=== PATIENT | female | born 1940 | race Hispanic/Latino ===

== ENCOUNTER 2018-05-07 15:50 | Inpatient (IN) | payer MEDICARE ==
[~2018-05-07] VITALS: Ht 162.6 cm; Wt 84.8 kg
[~2018-05-07 15:50] MED LIST: ASPIRIN EC81 MG PO; CENTRUM SILVER1 EAC3 PO; COLACE100 M1 PO; FAMOTIDINE20 MG PO; FERROUS SULFAT325 MG PO; GLIPIZIDE ER5 MG PO; LEVAQUIN250 MG PO; LEVAQUIN500 MG PO; LOSARTAN POTASS25 MG PO; MACRODANTIN100 MG PO; METRONIDAZOLE500 MG PO; OXYBUTYNIN CHLOR5 MG PO; RENVELA800 MG PO; SENOKOT8.6 MG PO; SERTRALINE HCL50 MG PO; VESICARE5 MG PO
[2018-05-07 16:59] LABS: BASOPHILS % 0.4 % (0.0-1.0); EOSINOPHILS # (AUTO) 0.1 (0.0-0.4); EOSINOPHILS % 1.2 % (0.0-6.0); HEMATOCRIT 35.9 % (34.2-44.1); HEMOGLOBIN 11.9 g/dL (12.0-16.0); LYMPHOCYTES # (AUTO) 1.9 (1.0-3.2); LYMPHOCYTES % 22.5 % (18.0-39.1); MEAN CORPUSCULAR HEMOGLOBIN 29.2 pg (28-32); MEAN CORPUSCULAR HGB CONC 33.1 g/dL (31-35); MEAN CORPUSCULAR VOLUME 88.2 fL (81-99); MONOCYTES # (AUTO) 0.7 (0.2-0.8); MONOCYTES % 7.9 % (4.4-11.3); NEUTROPHILS # (AUTO) 5.7 (2.1-6.9); NEUTROPHILS % 67.6 % (38.7-80.0); PLATELET COUNT 155 x10e3/uL (140-360); RED BLOOD COUNT 4.07 x10e6/uL (3.6-5.1)
[2018-05-07 17:23] LABS: ALANINE AMINOTRANSFERASE 9 IU/L (0-55); ALBUMIN 3.8 g/dL (3.5-5.0); ALBUMIN/GLOBULIN RATIO 1.2 (0.8-2.0); ALKALINE PHOSPHATASE 41 IU/L (40-150); ANION GAP 13.9 mmol/L (8-16); BLOOD UREA NITROGEN 26 mg/dL (7-26); BUN/CREATININE RATIO 24 (6-25); CALCIUM 9.4 mg/dL (8.4-10.2); CARBON DIOXIDE 24 mmol/L (22-29); CHLORIDE 104 mmol/L (98-107); CREATINE KINASE 83 IU/L (29-168); CREATININE, SERUM 1.09 mg/dL (0.57-1.11); EST GLOMERULAR FILTRATION RATE 49 ML/MIN (60-); GLUCOSE 105 mg/dL (74-118); POTASSIUM 3.9 mmol/L (3.5-5.1); SODIUM 138 mmol/L (136-145)
--- NOTE | 2018-05-07 17:33 | Diagnostic Imaging Report ---
EXAMINATION: Head CT HISTORY: Altered mental status, hallucinations COMPARISON: None. TECHNIQUE: Multidetector axial images were obtained without contrast from the foramen magnum to the vertex . The images were reconstructed using brain and bone algorithms. Thin section brain images were reformatted into coronal and sagittal planes. Intravenous contrast: None. Motion/streaking artifact limits the evaluation of the skull base and posterior cranial fossa. FINDINGS: Parenchyma: 1. No abnormal densities. No mass effect or midline shift. 2. No mass or hemorrhage. No CT evidence of acute territorial vascular insult. Extra-axial spaces:No abnormal density. No extra-axial fluid collections Brain volume: Normal for age. Ventricles: No hydrocephalus or displacement. Arteries: No density suggestive of thrombus. Dural sinuses: No abnormal density. Extra-axial spaces: No abnormal density. Foramen magnum: No mass, Chiari malformation, or basilar invagination. Sella: Partially empty, mostly CSF field. Paranasal/mastoid sinuses: Mucosal inflammatory thickening and partial opacification with a small air-fluid level within the left sphenoid sinus with periostitis, likely related to acute on chronic sinusitis, otherwise clear. Skull/Scalp: No lytic or blastic lesions. No fractures. IMPRESSION: 1. No intracranial mass, hydrocephalus, hemorrhage or acute cortical infarcts. 2. Left sphenoid sinusitis. Signed by: Dr. Kirti Betancourt M.D. on 05/07/2018 5:30 PM
--- NOTE | 2018-05-07 17:34 | Diagnostic Imaging Report ---
PROCEDURE: Frontal and lateral views of the chest. COMPARISON: 01/01/18 INDICATIONS: SOB FINDINGS: Lines/tubes: None. Lungs: The lungs are well inflated and clear. There is no evidence of pneumonia or pulmonary edema. Pleura: There is no pleural effusion or pneumothorax. Heart and mediastinum: The heart and the mediastinum are normal. Bones: No acute bony abnormality. IMPRESSION: 1. No acute cardiopulmonary disease. Dictated by: eJd White M.D. on 05/07/2018 at 17:38 Electronically approved by: Jed White M.D. on 05/07/2018 at 17:38
[2018-05-07 17:43] LABS: CLARITY,URINE CLOUDY (CLEAR); COLOR,URINE YELLOW (YELLOW); THYROID STIMULATING HORMONE 2.045 uIU/mL (0.350-4.940)
[2018-05-07 17:44] LABS: BILIRUBIN,URINE NEGATIVE (NEGATIVE); KETONES,URINE NEGATIVE (NEGATIVE); LEUKOCYTE ESTERASE ,URINE 2+ (NEGATIVE); NITRITE,URINE POSITIVE (NEGATIVE); PROTEIN,URINE DIPSTICK NEGATIVE (NEGATIVE); URINE UROBILINOGEN 0.2 mg/dL (0.2 - 1)
[2018-05-07 18:03] LABS: EPITHELIAL CELLS,URINE MANY /LPF
[2018-05-07 18:05] LABS: BACTERIA,URINE MODERATE /HPF; WBC,URINE (MAN) >50 /HPF (0-5)
[2018-05-07] MEDS ORDERED: ATORVASTATIN CA10 MG PO (19:08)
[2018-05-07] MEDS ORDERED: CEFTRIAXONE SOD 1 GM VIAL IM ONE (19:15)
[2018-05-07] MEDS ORDERED: CEFTRIAXONE SOD 1 GM VIAL IV SCH (19:15)
[2018-05-07 20:00] VITALS: BP 159/66
[2018-05-07] MEDS ORDERED: DEXTROSE 50% SYRINGE 50 ML IV PRN (20:00)
[2018-05-07] MEDS ORDERED: ONDANSETRON HCL INJ 2 MG/ML VIAL IV PRN (20:00)
[2018-05-07] MEDS ORDERED: ACETAMINOPHEN 325 MG TAB PO PRN (20:00)
[2018-05-07 21:00] VITALS: BP 159/66
[2018-05-07] MEDS: ATORVASTATIN 10 MG TAB PO SCH (21:00)
[2018-05-07] MEDS: INSULIN REGULAR, HUMAN 100 UNIT/1 ML 3ML VIAL SQ SCH (21:00)
[2018-05-07] MEDS: SODIUM CHLORIDE 0.9% 1000ML 1,000 ML IV SCH (21:00)
[2018-05-08] VITALS (7 sets, daily range): BP systolic 119–154; BP diastolic 55–65
[2018-05-08] MEDS: SODIUM CHLORIDE 0.9% 1000ML 1,000 ML IV SCH ×3 (04:53→23:01)
[2018-05-08 07:01] LABS: BASOPHILS % 0.3 % (0.0-1.0); EOSINOPHILS # (AUTO) 0.1 (0.0-0.4); EOSINOPHILS % 1.2 % (0.0-6.0); HEMATOCRIT 36.2 % (34.2-44.1); HEMOGLOBIN 11.7 g/dL (12.0-16.0); LYMPHOCYTES # (AUTO) 1.9 (1.0-3.2); LYMPHOCYTES % 22.4 % (18.0-39.1); MEAN CORPUSCULAR HEMOGLOBIN 29.1 pg (28-32); MEAN CORPUSCULAR HGB CONC 32.3 g/dL (31-35); MONOCYTES # (AUTO) 0.9 (0.2-0.8); MONOCYTES % 10.9 % (4.4-11.3); NEUTROPHILS # (AUTO) 5.6 (2.1-6.9); NEUTROPHILS % 64.7 % (38.7-80.0); PLATELET COUNT 138 x10e3/uL (140-360); RED BLOOD COUNT 4.02 x10e6/uL (3.6-5.1)
[2018-05-08 07:19] LABS: ALANINE AMINOTRANSFERASE 8 IU/L (0-55); ALBUMIN 3.1 g/dL (3.5-5.0); ALBUMIN/GLOBULIN RATIO 1.1 (0.8-2.0); ALKALINE PHOSPHATASE 34 IU/L (40-150); BLOOD UREA NITROGEN 21 mg/dL (7-26); BUN/CREATININE RATIO 25 (6-25); CALCIUM 8.6 mg/dL (8.4-10.2); CARBON DIOXIDE 24 mmol/L (22-29); CHLORIDE 111 mmol/L (98-107); CREATININE, SERUM 0.84 mg/dL (0.57-1.11); EST GLOMERULAR FILTRATION RATE > 60 ML/MIN (60-); GLUCOSE 127 mg/dL (74-118); SODIUM 142 mmol/L (136-145)
[2018-05-08] MEDS: INSULIN REGULAR, HUMAN 100 UNIT/1 ML 3ML VIAL SQ SCH ×4 (07:30→20:56)
[2018-05-08] MEDS: SEVELAMER CARBONATE 800 MG TAB PO SCH ×3 (08:00→17:27)
[2018-05-08 08:19] LABS: CHOL/HDL RATIO 4.9 (3.0-3.6)
[2018-05-08] MEDS: SERTRALINE HCL 50 MG TAB PO SCH (09:19)
[2018-05-08] MEDS: OXYBUTYNIN CHLORIDE 5 MG TAB PO SCH ×2 (09:19→17:27)
--- NOTE | 2018-05-08 11:52 | History and Physical ---
PRIMARY CARE PHYSICIAN: Dr. Shaikh CHIEF COMPLAINT: Confusion and hallucinations. HISTORY OF PRESENT ILLNESS: This is a 78-year-old woman with a history of diabetes mellitus, type 2, and chronic kidney disease, now developing hallucinations and confusion. Brought to the hospital and found to have a urinary tract infection. She was admitted for further evaluation and management. PAST MEDICAL HISTORY 1. Hypertension. 2. Urinary incontinence. 3. Diabetes mellitus, type 2. Hemoglobin A1c 6.6, LDL 55. 4. Acute kidney injury in the setting of chronic kidney disease, stage unknown. 5. Severe sepsis with renal dysfunction. 6. Peripheral edema. 7. Left lung pneumonia with left pleural effusion in January 2018. 8. Dysuria. 9. Obesity. BMI 31.8. 10. Maculopapular, erythematous skin rash secondary to vancomycin. PAST SURGICAL HISTORY 1. Hernia repair. 2. Right foot surgery. 3. Cholecystectomy. ALLERGIES: PER ELECTRONIC MEDICAL RECORD. FAMILY/SOCIAL HISTORY: The patient is . She has 5 children. No alcohol, illicits or cigarettes. MEDICATIONS: Per electronic medical record. REVIEW OF SYSTEMS: Unreliable. VITAL SIGNS: Reviewed. PHYSICAL EXAMINATION GENERAL: A tired-appearing woman resting in bed. HEENT: Anicteric. CARDIOVASCULAR: Normal S1 and S2. LUNGS: Moderate breath sounds. ABDOMEN: Soft, nontender, nondistended. EXTREMITIES: She has erythema of the bilateral lower forelegs. She has old scar on the right lower foreleg. Trace edema. SKIN: Dry. PSYCHIATRIC: Flat affect. NEUROLOGIC: Alert, appropriate, moving all extremities. LABS: Reviewed. MEDICATIONS: Reviewed. ASSESSMENT: A 78-year-old woman. 1. Urinary tract infection. 2. Acute metabolic encephalopathy. 3. Visual hallucinations. 4. Diabetes mellitus, type 2. 5. Hyperlipidemia. 6. Cellulitis of the bilateral legs. 7. Hypertension. 8. Normocytic anemia. 9. Physical deconditioning. PLAN 1. Start antibiotics. 2. Obtain urine culture. 3. Physical therapy consultation. 4. Obtain hemoglobin A1c and lipid panel. 5. CT scan of brain negative. 6. Will rehydrate the patient. 7. Will use SCDs bilaterally for DVT prophylaxis. Job#: [id number]
[2018-05-08] MEDS: ATORVASTATIN 10 MG TAB PO SCH (20:56)
[2018-05-08] MEDS: CEFTRIAXONE SOD 1 GM VIAL IV SCH (20:56)
[2018-05-09] VITALS (9 sets, daily range): BP systolic 119–142; BP diastolic 50–70
[2018-05-09] MEDS: SODIUM CHLORIDE 0.9% 1000ML 1,000 ML IV SCH ×3 (06:30→20:30)
[2018-05-09] MEDS: INSULIN REGULAR, HUMAN 100 UNIT/1 ML 3ML VIAL SQ SCH ×4 (07:30→21:00)
[2018-05-09] MEDS: SEVELAMER CARBONATE 800 MG TAB PO SCH ×3 (08:46→17:11)
[2018-05-09] MEDS: OXYBUTYNIN CHLORIDE 5 MG TAB PO SCH ×2 (09:32→17:11)
[2018-05-09] MEDS: SERTRALINE HCL 50 MG TAB PO SCH (09:33)
--- NOTE | 2018-05-09 14:06 | Progress Note ---
DATE: May 09, 2018 TIME OF SERVICE: 1300 OVERNIGHT: No acute events. REVIEW OF SYSTEMS: Patient denies chest pain, shortness of breath, nausea, vomiting, diarrhea. Patient denies dizziness, headache, or leg pain. VITAL SIGNS: T 95.6, P 50, R 18, BP 142/50, SpO2 99% on RA. PHYSICAL EXAMINATION GENERAL APPEARANCE: This is a tired-appearing female resting in bed. HEENT: Normocephalic, atraumatic. No sinus tenderness. Nares are patent. Oral mucosa is moist and intact. Trachea is midline without JVD noted. CARDIOVASCULAR: S1 and S2 auscultated without clicks, murmurs or rubs. LUNGS: Bilateral breath sounds CTA in all wren with fair excursions and reduced sounds at bases. ABDOMEN: Soft, nontender, not distended. EXTREMITIES: Moves all 4. Erythema of the bilateral lower anterior shins. Right lower anterior leg with scarring and trace pitting edema bilaterally, left greater than right. SKIN: Dry. PSYCHIATRIC: Flat affect. NEUROLOGIC: A and O times 3. Gross motor function intact on examination. LABS: Reviewed. MEDICATIONS 1. Zoloft 50 mg p.o. daily. 2. Ditropan 5 mg p.o. b.i.d. 3. Renvela 1,600 mg p.o. t.i.d. with meals. 4. IVF NS at 125 mL an hour. 5. Rocephin 1 g q.24 h. 6. Lipitor 10 mg p.o. nightly. 7. Sliding-scale insulin. 8. P.R.N. D50. 9. Acetaminophen p.r.n. q.4 h. as needed for pain and temperature. 10. P.R.N. Zofran q.4 h. ASSESSMENT AND PLAN: This is a 78-year-old woman with: 1. Urinary tract infection: Will continue IV antibiotics. Urine culture submitted this day. 2. Acute metabolic encephalopathy: Slight improvement overnight per nursing staff. 3. Visual hallucinations: Will continue to monitor. 4. Diabetes mellitus, type 2: Continue sliding-scale insulin with great control as preliminary glucose ranging between 166 to 103. 5. Hyperlipidemia: Hemoglobin A1c 5.8, triglycerides 96, cholesterol 188. Continue statin. 6. Cellulitis of the bilateral legs: Continue to monitor. PT consultation per nursing staff, note pending. Elevate legs when not ambulating. 7. Hypertension. Systolic blood pressure max 159 on admission. Over the last 24 hours, max systolic BP has been this afternoon during lunch at 142. We will continue to monitor. 8. Normocytic anemia. 9. Physical deconditioning: As above. 10. Prophylaxis: SCDs. 11. Disposition: Will continue hydration, physical therapy, IV antibiotics. Discussed the situation with Persian-speaking daughter at bedside with aid of interpretive staff and RN. Patient lives alone and will need physical therapy recommendation for ambulation. The patient believes she needs a walker. We will notify case management for home health evaluation for safety prior to discharge. Dictated by Melissa Montoya NP. Job#: [id number]
[2018-05-09] MEDS: ATORVASTATIN 10 MG TAB PO SCH (21:01)
[2018-05-09] MEDS: CEFTRIAXONE SOD 1 GM VIAL IV SCH (21:01)
[2018-05-10] VITALS (7 sets, daily range): BP systolic 116–147; BP diastolic 56–64
[2018-05-10] MEDS: SODIUM CHLORIDE 0.9% 1000ML 1,000 ML IV SCH ×2 (02:42→11:48)
[2018-05-10 06:27] LABS: ALANINE AMINOTRANSFERASE 6 IU/L (0-55); ALBUMIN 2.7 g/dL (3.5-5.0); ALKALINE PHOSPHATASE 33 IU/L (40-150); ANION GAP 9.9 mmol/L (8-16); BLOOD UREA NITROGEN 15 mg/dL (7-26); BUN/CREATININE RATIO 19 (6-25); CALCIUM 8.3 mg/dL (8.4-10.2); CARBON DIOXIDE 23 mmol/L (22-29); CHLORIDE 115 mmol/L (98-107); EST GLOMERULAR FILTRATION RATE > 60 ML/MIN (60-); GLUCOSE 114 mg/dL (74-118); POTASSIUM 3.9 mmol/L (3.5-5.1); SODIUM 144 mmol/L (136-145)
[2018-05-10] MEDS: INSULIN REGULAR, HUMAN 100 UNIT/1 ML 3ML VIAL SQ SCH ×4 (07:30→21:00)
[2018-05-10] MEDS ORDERED: KEFLEX500 MG PO (08:00)
[2018-05-10] MEDS: SEVELAMER CARBONATE 800 MG TAB PO SCH ×3 (09:56→17:04)
[2018-05-10] MEDS: OXYBUTYNIN CHLORIDE 5 MG TAB PO SCH ×2 (09:56→17:04)
[2018-05-10] MEDS: SERTRALINE HCL 50 MG TAB PO SCH (09:56)
--- NOTE | 2018-05-10 19:51 | Progress Note ---
DATE: May 10, 2018 TIME OF SERVICE: 8:45 a.m. SUBJECTIVE: Overnight, positive enterococcal urinary tract infection. REVIEW OF SYSTEMS: Denies any dizziness, chest pain, shortness of breath. Denies any headache or blurred vision. Denies any leg pain. PHYSICAL EXAMINATION: VITAL SIGNS: Reviewed. GENERAL APPEARANCE: A tired-appearing woman, resting in bed. HEENT: Anicteric. CARDIOVASCULAR: Normal S1 and S2. LUNGS: Bilateral breath sounds. ABDOMEN: Soft, nontender, nondistended. EXTREMITIES: No edema. SKIN: Dry. PSYCHIATRIC: Flat affect. LABS: Reviewed. MEDICATIONS: Reviewed. ASSESSMENT: A 78-year-old woman. 1. Enterococcal urinary tract infection. 2. Acute metabolic encephalopathy. 3. Visual hallucination. 4. Diabetes mellitus type 2. 5. Hyperlipidemia. 6. Cellulitis to the bilateral legs. 7. Hypertension. 8. Normocytic anemia. 9. Physical deconditioning. PLAN: 1. Continue antibiotics. 2. Improving. 3. Glucose control. 4. Continue ceftriaxone and leg elevation. 5. Discharge planning. Job#: [id number]
[2018-05-10] MEDS: CEPHALEXIN 500 MG CAP PO SCH (21:37)
[2018-05-10] MEDS: ATORVASTATIN 10 MG TAB PO SCH (21:38)
[2018-05-11 01:11] VITALS: BP 137/64
[2018-05-11 05:10] VITALS: BP 148/65
[2018-05-11 07:10] VITALS: BP 157/66
[2018-05-11] MEDS: INSULIN REGULAR, HUMAN 100 UNIT/1 ML 3ML VIAL SQ SCH ×2 (07:30→12:21)
[2018-05-11 07:57] VITALS: BP 157/66
[2018-05-11] MEDS: SEVELAMER CARBONATE 800 MG TAB PO SCH ×2 (08:11→12:32)
[2018-05-11] MEDS ORDERED: ONDANSETRON HCL 4 MG ORAL DISINTEGRATING TAB PO PRN (08:15)
[2018-05-11] MEDS: OXYBUTYNIN CHLORIDE 5 MG TAB PO SCH (08:44)
[2018-05-11] MEDS: SERTRALINE HCL 50 MG TAB PO SCH (08:44)
[2018-05-11] MEDS: CEPHALEXIN 500 MG CAP PO SCH (08:44)
[2018-05-11] MEDS ORDERED: ZOFRAN ODT4 MG PO (11:55)
[2018-05-11 12:08] VITALS: BP 126/79
--- NOTE | 2018-05-11 16:20 | Discharge Summary ---
PRINCIPAL DIAGNOSES 1. Enterococcal urinary tract infection. 2. Acute metabolic encephalopathy. 3. Visual hallucinations. 4. Diabetes mellitus type 2. 5. Hyperlipidemia. 6. Cellulitis bilateral legs. 7. Hypertension. 8. Normocytic anemia. 9. Physical decondition. SECONDARY DIAGNOSIS: Diabetes mellitus type 2. CHIEF COMPLAINT: Confusion. HISTORY OF PRESENT ILLNESS: A 78-year-old with confusion and urinary tract infection. Refer to the H\T\P for further details. HOSPITAL COURSE: Patient found to have enterococcal urinary tract infection treated with IV antibiotics, acute metabolic encephalopathy which improved. Visual hallucination resolved with antibiotics. Diabetes mellitus type 2 was evaluated and hemoglobin A1c was 5.8, LDL was 131. Patient is doing better and currently appropriate for discharge followup. DISCHARGE MEDICATIONS: As per electronic medical record and include Keflex 500 mg p.o. q.12. FOLLOWUP: Primary care doctor in 1 week. CONDITION ON DISCHARGE: Stable. LOCATION: Home. BAO MESSER MD Job#: [id number]
== END 2018-05-11 15:00 | disposition home or self-care (01) | DRG 689 ==
LOC: ER 15:50 → ERHOLD 19:48 → MED/SURG3 20:34
PROVIDERS: ADMIT Internal Medicine; ATTEND Internal Medicine
DX: N30.00 Acute cystitis without hematuria (principal); G93.41 Metabolic encephalopathy; L03.116 Cellulitis of left lower limb; L03.115 Cellulitis of right lower limb; J32.3 Chronic sphenoidal sinusitis; R44.1 Visual hallucinations; E11.22 Type 2 diabetes mellitus with diabetic chronic kidney disease; I12.9 Hypertensive chronic kidney disease with stage 1 through stage 4 chronic kidney disease, or unspecified chronic kidney disease; N18.9 Chronic kidney disease, unspecified; E78.5 Hyperlipidemia, unspecified; D64.9 Anemia, unspecified; R53.81 Other malaise; B95.2 Enterococcus as the cause of diseases classified elsewhere
CPT/HCPCS: 36415; 70450; 71046; 80053; 80061; 81001; 82550; 82553; 82948; 83036; 83605; 84443; 84484; 85025; 87040; 87086; 87186; 99284; J0696; J7030

== ENCOUNTER 2018-08-29 13:54 | Emergency (ER) | payer MEDICARE ==
[~2018-08-29] VITALS: Ht 162.6 cm; Wt 84.8 kg
[~2018-08-29 13:54] MED LIST changes: +ATORVASTATIN CA10 MG PO; +KEFLEX500 MG PO; +ZOFRAN ODT4 MG PO
--- OUTSIDE RECORDS SUMMARY | 2018-08-29 13:58 | XMS REPORT | Summary of Care ---
Author Author [facility] [place] Organization [facility] [place] Address Unknown Phone Unavailable Encounter [facility] [email or web address]([facility]) [id number] Date(s): 12/11/16 - 12/11/16 [facility] - [place] [address] [place] [phone] Discharge Disposition: Home or Self Care Attending Physician: Kvng Pate MD Vital Signs No data available for this section Problem List No data available for this section Allergies, Adverse Reactions, Alerts No data available for this section Medications No data available for this section Results No data available for this section Immunizations No data available for this section Procedures No data available for this section Social History No data available for this section Assessment and Plan No data available for this section
--- OUTSIDE RECORDS SUMMARY | 2018-08-29 13:58 | XMS REPORT | Summary of Care ---
Author Organization Unknown Address Unknown Phone Unavailable Encounter [facility] [email or web address]([facility]) [id number] Date(s): 09/20/14 - 09/20/14 [facility] Outpatient Imaging - [address] [address] Discharge Disposition: Home Physician Attending: Paulo Shaikh MD Reason for Visit 793.80 - ABL MAMMOGRAM N Problem List No data available for this section Allergies, Adverse Reactions, Alerts No data available for this section Medications No data available for this section Medications Administered During Your Visit No data available for this section Immunizations No data available for this section
--- OUTSIDE RECORDS SUMMARY | 2018-08-29 13:58 | XMS REPORT | Summary of Care ---
Author Organization Unknown Address Unknown Phone Unavailable Encounter [facility] [email or web address]([facility]) [id number] Date(s): 08/26/14 - 08/26/14 [facility] Outpatient Imaging - [address] [address] [place] Discharge Disposition: Home Physician Attending: Paulo Shaikh MD Reason for Visit V76.12 - SCREEN MAMMOGRA Problem List No data available for this section Allergies, Adverse Reactions, Alerts No data available for this section Medications No data available for this section Medications Administered During Your Visit No data available for this section Immunizations No data available for this section
--- OUTSIDE RECORDS SUMMARY | 2018-08-29 13:58 | XMS REPORT | Continuity of Care Document ---
Author Author [facility] Interface Address Unknown Phone Unavailable Problems Problem Status Onset Date Classification Date Reported Comments Source PERIPHERAL VASULAR DISEASE Active 05/27/2018 [facility] Pneumonia, unspecified organism 01/21/2018 04/23/2018 SAUNDRA Benson 789.0 - ABDOMINAL PAIN Active 12/26/2014 SAUNDRA Benson MASS Active 09/27/2014 [facility] PERIPHERAL VASCULAR DISEASE, UNSPECIFIED Active [facility] Medications Medication Details Route Status Patient Instructions Ordering Provider Order Date Source Allergies, Adverse Reactions, Alerts Substance Category Reaction Severity Reaction type Status Date Reported Comments Source Immunizations Immunization Date Given Site Status Last Updated Comments Source Results Order Name Results Value Reference Range Date Interpretation Comments Source Shoulder series DX Shoulder series DX EXAM: Shoulder series DX HISTORY: - LEFT SHOULDER PAIN COMPARISON: None 3 views of the left shoulder. FINDINGS: No fracture or dislocation. No significant degenerative change at the AC joint. There is mild irregularity of the superolateral humeral head. IMPRESSION: No acute radiographic abnormality. 08/12/2018 - - Read by: Smiley Noe MD Dictated Date/time: 08/12/18 16:09 Electronically Signed by: Smiley Noe MD 08/12/18 16:09 FINAL REPORT DIANEL[facility] Ext Lower Venous Doppler Bilat US Ext Lower Venous Doppler Bilat US EXAM: US BILATERAL LOWER EXTREMITY VENOUS DOPPLER DATE: 07/14/2018 12:41 PM CDT INDICATION: - M79.605 Pain in left leg,M79.604 Pain in right leg. Bilateral chronic leg pain for several years. History of fall on left side of body on 07/08/2018. History of prior bilateral leg venous varix surgery in [place] several years ago. ADDITIONAL INFORMATION: None. COMPARISON: None. TECHNIQUE: Multiplanar grayscale, color Doppler and spectral Doppler ultrasound images of the bilateral lower extremity veins. FINDINGS: Right Thigh Veins: Common Femoral: Patent. Femoral (SFV): Patent. Popliteal: Patent. Proximal Greater Saphenous: Not visualized and possibly surgically absent or ablated. Deep Femoral Veins: Patent. Right Calf Veins: Limited secondary to right lower extremity edema Paired Peroneal: Patent. Posterior Tibial Calf: Patent. Left Thigh Veins: Common Femoral: Patent. Femoral (SFV): Patent. Popliteal: Patent. Proximal Greater Saphenous: Not visualized and possibly surgically absent or ablated. Deep Femoral Veins: Patent. Left Calf Veins: Limited secondary to left lower extremity edema Paired Peroneal: Patent. Posterior Tibial Calf: Patent. Other: Moderate to severe soft tissue edema seen in both calves, left-sided greater than right. IMPRESSION: 1. No deep venous thrombosis is seen sonographically. 2. Moderate to severe soft tissue edema in both calves, left-sided greater than right. 3. The bilateral greater saphenous veins are not visualized and may be surgically absent or ablated. 07/14/2018 - - Read by: Uri Lemons MD Dictated Date/time: 07/14/18 13:57 Electronically Signed by: Uri Lemons MD 07/14/18 14:[address] [facility] Ankle 3 views DX Ankle 3 views DX EXAM: Ankle 3 views DX HISTORY: - left ankle trauma COMPARISON: None 3 views of the left ankle. FINDINGS: There is significant circumferential soft tissue swelling. No fracture or dislocation is seen. There are prominent superior and inferior calcaneal enthesophytes. IMPRESSION: Advanced soft tissue swelling. Calcaneal spurs. 07/09/2018 - - Read by: Smiley Noe MD Dictated Date/time: 07/09/18 15:36 Electronically Signed by: Smiley Noe MD 07/09/18 15:37 FINAL REPORT [facility]DR[facility] Ribs unilateral DX Ribs unilateral DX Exam: Left rib cage x-ray series Reason for Exam: - left tib trauma Comparison Exam: None Discussion: There are no acute bony abnormalities seen of the left rib cage. No underlying pneumothorax or pulmonary contusion. No suspicious osteoblastic or osteolytic lesions. Impression: 1. No acute bony abnormality seen within the left rib cage. 07/09/2018 - - Read by: Jorje Umana MD Dictated Date/time: 07/09/18 16:13 Electronically Signed by: Jorje Umana MD 07/09/18 16:15 FINAL REPORT [facility]DR[facility] Knee 1-2 Views unilateral DX Knee 1-2 Views unilateral DX EXAM: Knee 1-2 Views unilateral DX HISTORY: - left knee trauma COMPARISON: None 2 views of the left knee. FINDINGS: No significant joint space narrowing. There are tricompartmental moderate osteophytes. There is a small joint effusion. There is a small superior patellar spur. No fracture or dislocation is seen. IMPRESSION: Tricompartmental osteoarthritis as above. 07/09/2018 - - Read by: Smiley Noe MD Dictated Date/time: 07/09/18 15:35 Electronically Signed by: Smiley Noe MD 07/09/18 15:36 FINAL REPORT SAUNDRA Benson Ext Lower Arterial bilat w pressure US Ext Lower Arterial bilat w pressure US Please refer to heart lab report, located under Vascular in [facility]. 06/01/2018 - - Electronically Signed by: Umberto Danielle 06/02/18 12:05 FINAL REPORT [facility] Chest 2 views DX Chest 2 views DX EXAM: XR CHEST 2 VIEWS DATE: 01/14/2018 1:07 PM [employer]ING OFF[employer]ER INDICATION: - pneumonia follow up COMPARISON: 07/10/2016 TECHNIQUE: PA and lateral chest radiographs FINDINGS: The lungs are clear. The cardiomediastinal silhouette is prominent, but stable. There is no acute bony abnormality. IMPRESSION: No acute abnormality 01/14/2018 - - Read by: Garima Paulino Dictated Date/time: 01/14/18 14:45 Electronically Signed by: Garima Paulino 01/14/18 14:46 FINAL REPORT [facility]UNDR[facility] Benson Shoulder wo contrast MRI Shoulder wo contrast MRI EXAMINATION: MR right shoulder without contrast HISTORY: S46.091A Other injury of muscle(s) and tendon(s) of the rotator cuff of right shoulder, initial encounter; sharp right shoulder pain and limited range of motion x 1 month; right rotator cuff tear COMPARISON: Radiographs dated 11/19/2016 are reviewed. TECHNIQUE: Multiplanar, multisequence magnetic resonance imaging of the right shoulder is performed with a local coil. Transverse, oblique coronal, and oblique sagittal images are obtained. FINDINGS: Biceps: There is moderate tendinosis of the proximal long head of the biceps tendon with increased intratendinous signal and tendon hypertrophy. The long head of biceps remains attached at the superior bicipital labral complex. Labrum: There is degenerative fraying of the posterosuperior right glenoid labrum. The labrum below the glenoid equator is intact. Rotator cuff tendons: There is a large full-thickness tear involving the entire supraspinatus and infraspinatus tendons measuring approximately 2.5 cm in total anteroposterior dimension with medial retraction of the torn distal tendon fibers by approximately 4.2 cm and retraction of the myotendinous junctions to the level of the scapular neck. There is underlying severe supraspinatus and infraspinatus tendinosis. The teres minor tendon is intact. There is mild to moderate subscapularis tendinosis without subscapularis tendon tear. Muscles: There is mild supraspinatus and moderate infraspinatus fatty atrophy and decreased muscle bulk. The teres minor and subscapularis muscles are normal in bulk and signal intensity. Acromio-osseous outlet: There is superior subluxation of the humeral head with respect to the glenoid with narrowing of the subacromial space in keeping with a full-thickness rotator cuff tear. There is a type II acromion with a large subacromial spur. The coracoacromial and coracoclavicular ligaments are intact. The acromioclavicular joint appears normal. Bone: There are no acute fractures. There are no suspicious bone marrow replacing lesions. Cartilage: There is no focal high-grade glenohumeral chondral defect. Soft tissue: There is a moderate-sized glenohumeral joint effusion with scattered synovitis. Joint fluid freely communicates with the subacromial subdeltoid bursa through the full-thickness rotator cuff tear. There is also fluid extending along the proximal biceps tendon sheath with decompression from the biceps tendon sheath along the anteroinferior aspect of the shoulder. IMPRESSION: 1. Large full-thickness right rotator cuff tear involving the entire supraspinatus and infraspinatus tendons measuring approximately 2.5 cm in total anteroposterior dimension with medial retraction of the torn distal tendon fibers to the level the glenohumeral joint and retraction of the myotendinous junctions to the level the scapular neck. There is underlying severe right supraspinatus and infraspinatus tendinosis and there is mild supraspinatus and moderate infraspinatus fatty atrophy with decreased muscle bulk. 2. Mild to moderate right subscapularis tendinosis with intact subscapularis tendon and no subscapularis muscle atrophy. 3. Superior subluxation of the humeral head with respect to the glenoid with narrowing of the subacromial space in keeping with a full-thickness rotator cuff tear. 4. Degenerative fraying of the posterosuperior right glenoid labrum, but no focal high-grade glenohumeral chondral defect. 5. Moderate tendinosis of the proximal long head of the right biceps tendon, as well as, fluid extending along the proximal biceps tendon sheath likely representing biceps tenosynovitis with decompression of fluid within the biceps tendon sheath along the anteroinferior aspect of the shoulder. 6. Large right subacromial spur contributing to narrowing of the shoulder outlet and predisposing to subacromial impingement. 7. Moderate-sized right glenohumeral joint effusion with scattered synovitis. 12/11/2016 - - Read by: Houston Smiht MD Dictated Date/time: 12/11/16 14:42 Electronically Signed by: Houston Smith MD 12/11/16 14:54 FINAL REPORT [facility]UNDR[facility] Shoulder series DX Shoulder series DX EXAMINATION: Right shoulder series HISTORY: Right shoulder pain; right subacromial spur FINDINGS: 3 views of the right shoulder are performed without comparison. There are no acute fractures or dislocations. The alignment is normal. The glenohumeral and acromioclavicular joint spaces are normal. There is a large subacromial spur. IMPRESSION: 1. Large right subacromial spur which may contribute to narrowing of the shoulder outlet and predispose to subacromial impingement and rotator cuff pathology. MR examination of the right shoulder may be performed for further evaluation of the rotator cuff as clinically indicated (if the patient is MR compatible). 2. No acute fracture or dislocation of the right shoulder. 11/19/2016 - - Read by: Houston Smith MD Dictated Date/time: 11/19/16 10:24 Electronically Signed by: Houston Smith MD 11/19/16 10:26 FINAL REPORT DIANELYS Benson Knee 1-2 Views Bilateral DX Knee 1-2 Views Bilateral DX EXAMINATION: Bilateral knees 1 to 2 views each. HISTORY: Bilateral knee pain; bilateral knee arthritis FINDINGS: Frontal and lateral views of each knee are performed and compared to right tibia and fibula radiographs dated 05/23/2013. There are no fractures. There is mild to moderate medial compartment predominant, tricompartmental osteoarthritis of both knees. There is a small right knee effusion without definite left knee effusion. Enthesopathic heterotopic ossification is noted at the quadriceps insertion bilaterally. IMPRESSION: 1. Mild to moderate medial compartment predominant, tricompartmental osteoarthritis of both knees with a small right knee effusion. 07/10/2016 - - Read by: Houston Smith MD Dictated Date/time: 07/10/16 11:22 Electronically Signed by: Houston Smith MD 07/10/16 11:23 FINAL REPORT DIANELYS Benson Chest 2 views DX Chest 2 views DX Chest x-ray 2 views Comparison: [<None available.>] Findings: Heart size and central vasculature are within normal limits, with a mildly tortuous and calcified aorta. There is no effusion or focal pneumonia. No acute osseus pathology. Bridging midthoracic osteophyte suggests diffuse idiopathic skeletal hyperostosis. Impression: No acute abnormality. DISH 07/10/2016 - - Read by: Wyatt Romo MD Dictated Date/time: 07/10/16 11:47 Electronically Signed by: Wyatt Romo MD 07/10/16 11:48 FINAL REPORT DIANELYS Benson Shoulder series DX Shoulder series DX CLINICAL HISTORY: pain AGE: 76 years GENDER: Female TECHNIQUE: Left shoulder radiographs, 3 views. COMPARISON: None FINDINGS: There is no evidence of fracture or dislocation. Osseous mineralization is within normal limits. No lytic or blastic lesions are seen. There is no degenerative change in the acromioclavicular joint. IMPRESSION: No evidence of fracture or dislocation.. 07/10/2016 - - Read by: Roque Zhang MD Dictated Date/time: 07/10/16 11:43 Electronically Signed by: Roque Zhang MD 07/10/16 11:44 FINAL REPORT DIANEL[facility] Vital Signs Vital Sign Value Date Comments Source Encounters Location Location Details Encounter Type Encounter Number Reason For Visit Attending Provider ADM Date DC Date Status Source [facility] [place] [id number] Paulo Shaikh 08/26/2014 08/27/2014 [facility] [place] [facility] [place] [facility] [id number] Paulo Shaikh 09/20/2014 09/21/2014 [facility] [place] [facility] [id number] [facility] 10/16/2014 10/17/2014 [facility] [place] [facility] [id number] Paulo Shaikh 07/10/2016 07/11/2016 [facility] [place] [facility] [place] [facility] [id number] [facility] Shaikh 11/19/2016 11/20/2016 [facility] [place] [facility] [place] Out[facility] [id number] Kvng Pate 12/11/2016 12/12/2016 [facility] [place] [facility] [place] [facility] [id number] [facility] 01/14/2018 01/15/2018 [facility] [place] [facility] Outpatient [id number] [facility] 06/01/2018 06/02/2018 [facility] Procedures Procedure Code Date Perfomer Comments Source
--- OUTSIDE RECORDS SUMMARY | 2018-08-29 13:58 | XMS REPORT | Summary of Care ---
Author Author [facility] [place] Organization [facility] [place] Address Unknown Phone Unavailable Encounter [facility] Juanr_elmer([facility]) [id number] Date(s): 11/19/16 - 11/19/16 [facility] [place] [address] [place] [phone] Discharge Disposition: Home or Self Care Attending Physician: Paulo Shaikh MD Vital Signs No data available for [...]
--- OUTSIDE RECORDS SUMMARY | 2018-08-29 13:58 | XMS REPORT | Summary of Care ---
Author Author [facility] Organization [facility] Address Unknown Phone Unavailable Encounter [facility]el[facility]) [id number] Date(s): 06/01/18 - 06/01/[address] [facility] [address] [place] [address]- [phone] Discharge Disposition: Home or Self Care Attending Physician: Paulo Shaikh MD Referring Physician: Paulo Shaikh MD Vital Signs No [...]
--- OUTSIDE RECORDS SUMMARY | 2018-08-29 13:58 | XMS REPORT | Summary of Care ---
Author Author [facility] [place] Organization [facility] [place] Address Unknown Phone Unavailable Encounter [facility]elmer([facility]) [id number] Date(s): 01/14/18 - 01/14/18 [facility] [place] [address] [address] [phone] Encounter Diagnosis Pneumonia, unspecified organism (Final) - 01/20/18 Discharge Disposition: Home or Self Care Attending [...]
--- OUTSIDE RECORDS SUMMARY | 2018-08-29 13:58 | XMS REPORT | Summary of Care ---
Author Author [facility] [place] Organization [facility] [place] Address Unknown Phone Unavailable Encounter [facility]elmer([facility]) [id number] Date(s): 07/10/16 - 07/10/16 [facility] [place] [address] [phone] Discharge Disposition: Home or Self Care Attending [...]
[2018-08-29] MEDS ORDERED: TETANUS/DIPHTHERIA TOX ADULT 0.5 ML SYR IM ONE (14:00)
--- NOTE | 2018-08-29 15:28 | Diagnostic Imaging Report ---
Exam: Brain, face, and cervical spine CTs without contrast History: Fall from bed Comparison studies:Head CT 05/07/2018 Technique: Axial images were obtained from the brain, face and cervical spine. Coronal and sagittal reconstructions obtained from the axial data. Dose modulation, iterative reconstruction, and/or weight based adjustment of the mA/kV was utilized to reduce the radiation dose to as low as reasonably achievable. Intravenous contrast: None Findings: Head CT: Scalp/skull: No abnormalities. No fractures, blastic or lytic lesions. Extra-axial spaces: No masses. No fluid collections. Brain sulci: Appropriate for age. Ventricles: Normal in size and configuration. No hydrocephalus. Parenchyma: No abnormal densities. No masses, hemorrhage, acute or chronic cortical vascular insults. Sellar/suprasellar region: No abnormalities Craniocervical junction: Patent foramen magnum. No Chiari one malformation. Additional findings: Calcific atherosclerosis of the carotid siphons. Maxillofacial CT: Soft tissues: Left periorbital and premaxillary superficial soft tissue swelling and laceration. Bones: No fractures or bony abnormalities. . Orbits: No abnormalities. Paranasal sinuses: Mucosal thickening in the alveolar recess of the right maxillary sinus. Cervical spine CT: Airway: Patent. Fractures: None. Soft tissues: Unremarkable. Atlantoaxial articulation: Intact. Alignment: Normal lordosis. No scoliosis. Cervicomedullary junction: No abnormalities. The foramen magnum is patent. Vertebrae: No infection or neoplasm. Degenerative changes: Normal cervical lordosis. No significant canal or foraminal stenoses. Incidental findings: Retropharyngeal course of the internal carotid arteries. IMPRESSION: Head CT: 1. Unremarkable head CT without contrast. 2. No changes when compared to head CT dated 05/07/2018. Facial CT: 1. No maxillofacial fractures. 2. Left facial contusion and laceration. Cervical spine CT: 1. No fractures or subluxations. 2. Cannot adequately evaluate for ligament, spinal cord and or vascular abnormalities. A preliminary report was provided by Dr. Augustine on 08/29/2018 3:28 PM. Signed by: DR Trevon Rivera M.D. on 08/29/2018 3:42 PM
[2018-08-29] MEDS ORDERED: ULTRAM50 MG PO (16:06)
== END 2018-08-29 16:36 | disposition home or self-care (01) ==
LOC: ER 13:54
DX: S06.0X0A Concussion without loss of consciousness, initial encounter (principal); W01.0XXA Fall on same level from slipping, tripping and stumbling without subsequent striking against object, initial encounter; Y92.008 Other place in unspecified non-institutional (private) residence as the place of occurrence of the external cause
CPT/HCPCS: 70450; 70486; 72125; 90471; 90714; 99284

== ENCOUNTER 2019-03-04 14:08 | Emergency (ER) | payer MEDICARE ==
[~2019-03-04] VITALS: Ht 162.6 cm; Wt 86.2 kg
[~2019-03-04 14:08] MED LIST changes: +ULTRAM50 MG PO
--- NOTE | 2019-03-04 15:05 | Diagnostic Imaging Report ---
Exams: Head and cervical spine CTs without IV contrast History: Trauma, fall Comparison studies: Head and cervical spine CTs of 10/29/2018 Technique: Axial images were obtained from the brain and cervical spine. Coronal and sagittal images reconstructed from the axial data. Dose modulation, iterative reconstruction, and/or weight based adjustment of the mA/kV was utilized to reduce the radiation dose to as low as reasonably achievable. Radiation dose: Total DLP: 1066 mGy*cm. Estimated effective dose: DLP x 0.015 Intravenous contrast: None Findings: Head CT: Scalp: Right parieto-occipital scalp hematoma. No retained hyperdense foreign body. Bones: No fractures, blastic or lytic lesions. Extra-axial spaces: No masses. No fluid collections. Brain sulci: Appropriate for age. Ventricles: Normal in size and configuration. No hydrocephalus. Parenchyma: No abnormal densities. No masses, hemorrhage, acute or chronic vascular insults. Sellar/suprasellar region: No abnormalities. Craniocervical junction: The foramen magnum is patent. No Chiari one malformation. Incidental findings: Atherosclerotic calcifications in the carotid siphons. Cervical spine CT: Fractures: None. Soft tissues: No gross abnormalities. Atlantoaxial articulation: Intact. Alignment: Normal lordosis. No subluxations. Cervicomedullary junction: No abnormalities. The foramen magnum is patent. Vertebrae: No infection or neoplasm. 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 Degenerative changes: Multilevel facet arthrosis. Patent canal and foramina. Incidental findings: Small small right parotid and right submandibular gland dystrophic calcifications or sialoliths.. IMPRESSION: Head CT: 1. No acute intracranial abnormalities. 2. Right parieto-occipital scalp hematoma without underlying fracture. Cervical spine CT: 1. No cervical spine fracture subluxation. 2. Cannot exclude ligament, spinal cord and or vascular abnormalities on the basis of this examination. Signed by: Dr. Tacos Calderon M.D. on 03/04/2019 3:01 PM
--- NOTE | 2019-03-04 15:23 | Diagnostic Imaging Report ---
Exam: Right shoulder 2 views History: Pain Comparison: None. Findings: No fracture or malalignment. Narrowing of the acromiohumeral interval with spurring. Impression: No acute osseous abnormality Radiographic findings of rotator cuff tendinopathy. Signed by: Dr. [place] M.D. on 03/04/2019 3:20 PM
[2019-03-04 16:30] VITALS: BP 134/60
== END 2019-03-04 16:41 | disposition home or self-care (01) ==
LOC: ER 14:08
DX: S00.83XA Contusion of other part of head, initial encounter (principal); S00.01XA Abrasion of scalp, initial encounter; M25.511 Pain in right shoulder; S40.011A Contusion of right shoulder, initial encounter; W01.0XXA Fall on same level from slipping, tripping and stumbling without subsequent striking against object, initial encounter; Y92.488 Other paved roadways as the place of occurrence of the external cause; I10 Essential (primary) hypertension; E11.9 Type 2 diabetes mellitus without complications
CPT/HCPCS: 70450; 72125; 99283

== ENCOUNTER 2019-09-14 12:35 | Observation (INO) | payer MEDICARE ==
[~2019-09-14] VITALS: Ht 162.6 cm; Wt 86.2 kg
[2019-09-14 14:10] LABS: BASOPHILS % 0.6 % (0.0-1.0); EOSINOPHILS # (AUTO) 0.1 (0.0-0.4); EOSINOPHILS % 1.1 % (0.0-6.0); HEMOGLOBIN 12.9 g/dL (12.0-16.0); LYMPHOCYTES # (AUTO) 1.9 (1.0-3.2); LYMPHOCYTES % 30.9 % (18.0-39.1); MEAN CORPUSCULAR HEMOGLOBIN 28.9 pg (28-32); MEAN CORPUSCULAR HGB CONC 32.3 g/dL (31-35); MEAN CORPUSCULAR VOLUME 89.7 fL (81-99); MONOCYTES # (AUTO) 0.4 (0.2-0.8); MONOCYTES % 6.4 % (4.4-11.3); NEUTROPHILS # (AUTO) 3.7 (2.1-6.9); PLATELET COUNT 170 x10e3/uL (140-360); RED BLOOD COUNT 4.46 x10e6/uL (3.6-5.1); RED CELL DISTRIBUTION WIDTH 14.3 % (11.7-14.4)
[2019-09-14 14:32] LABS: ALBUMIN 3.6 g/dL (3.5-5.0); ALBUMIN/GLOBULIN RATIO 1.1 (0.8-2.0); CALCIUM 9.4 mg/dL (8.4-10.2); CREATININE, SERUM 1.48 mg/dL (0.57-1.11)
[2019-09-14] MEDS ORDERED: SODIUM CHLORIDE FLUSH 10 ML SYR INJ PRN (17:45)
[2019-09-14] MEDS ORDERED: CLINDAMYCIN PHOS 900MG/ 50ML 50 ML IV SCH (18:00)
[2019-09-14] MEDS: TRAMADOL HCL 50 MG TAB PO PRN ×2 (18:01→21:28)
[2019-09-14] MEDS ORDERED: ACETAMINOPHEN 325 MG TAB PO PRN (18:30)
[2019-09-14] MEDS ORDERED: FUROSEMIDE INJ 10 MG/ML 2 ML VIAL IV NR (18:30)
[2019-09-14] MEDS ORDERED: ONDANSETRON HCL INJ 2MG/ML 2ML 2 MG/ML VIAL IV PRN (18:30)
[2019-09-14] MEDS ORDERED: CLONIDINE HCL 0.1 MG TAB PO PRN (18:45)
[2019-09-14] MEDS: LACTOBACILLUS ACIDOPHILUS CAPSULE PO SCH (18:49)
[2019-09-14] MEDS: GABAPENTIN 100 MG CAP PO SCH (18:49)
[2019-09-14] MEDS ORDERED: DEXTROSE 50% SYRINGE 50 ML IV PRN (20:45)
[2019-09-14] MEDS: INSULIN LISPRO 100 UNIT/1 ML 3ML VIAL SQ SCH (21:00)
[2019-09-14] MEDS ORDERED: INSULIN REGULAR, HUMAN 100 UNIT/1 ML 3ML VIAL SQ SCH (21:00)
[2019-09-14 21:41] VITALS: BP 150/94
[2019-09-14 21:44] VITALS: BP 150/94
[2019-09-14 21:45] VITALS: BP 150/94
[2019-09-14 21:49] VITALS: BP 150/94
[2019-09-14] MEDS: METRONIDAZOLE 500MG/NS 100ML 100 ML IV SCH (21:56)
[2019-09-14] MEDS: HEPARIN SOD (PORCINE) 5,000 UNIT/ML VIAL SC SCH (21:56)
[2019-09-14] MEDS ORDERED: SODIUM CHLORIDE 0.9% 250ML 250 ML ONE (22:00)
--- NOTE | 2019-09-14 22:06 | Diagnostic Imaging Report ---
Exams: CT left lower extremity without contrast History: Cellulitis, query abscess. Comparison studies: None. Technique: Multidetector helical scanner CT images were obtained from the left lower extremity. Coronal and sagittal images were reconstructed. Dose modulation, iterative reconstruction, and/or weight based adjustment of the mA/kV was utilized to reduce the radiation dose to as low as reasonably achievable. Radiation dose: Total DLP: 247 mGy*cm. Estimated effective dose: (DLP x 0.014 x size factor) mSv Intravenous contrast: None FINDINGS: There is subcutaneous edema in the lower left leg, ankle, and foot. No evidence of drainable fluid collection. No evidence of bony destructive changes. No acute fracture or malalignment. Possible soft tissue ulceration in the posterior/medial ankle. Atherosclerotic vascular calcifications. Varicose veins are noted. Mild degenerative changes in the knee. Plantar calcaneal spur. IMPRESSION: Subcutaneous edema in the lower leg, ankle, and foot, suggestive of cellulitis. Possible soft tissue ulceration in the posterior/medial ankle. No evidence of drainable fluid collection or bony destructive changes. Signed by: Dr. Nasreen Calderon MD on 09/14/2019 10:03 PM
[2019-09-15] VITALS (10 sets, daily range): BP systolic 127–145; BP diastolic 56–70
[2019-09-15] MEDS: CLINDAMYCIN 600MG / 50ML 50 ML IV SCH ×3 (05:23→20:46)
[2019-09-15] MEDS: METRONIDAZOLE 500MG/NS 100ML 100 ML IV SCH ×3 (05:23→20:48)
[2019-09-15 05:43] LABS: BASOPHILS % 0.5 % (0.0-1.0); EOSINOPHILS # (AUTO) 0.1 (0.0-0.4); EOSINOPHILS % 1.3 % (0.0-6.0); HEMATOCRIT 37.4 % (34.2-44.1); HEMOGLOBIN 12.1 g/dL (12.0-16.0); LYMPHOCYTES # (AUTO) 2.4 (1.0-3.2); LYMPHOCYTES % 38.8 % (18.0-39.1); MEAN CORPUSCULAR HGB CONC 32.4 g/dL (31-35); MEAN CORPUSCULAR VOLUME 89.7 fL (81-99); MONOCYTES # (AUTO) 0.6 (0.2-0.8); MONOCYTES % 9.8 % (4.4-11.3); NEUTROPHILS % 48.5 % (38.7-80.0); PLATELET COUNT 138 x10e3/uL (140-360); RED BLOOD COUNT 4.17 x10e6/uL (3.6-5.1); RED CELL DISTRIBUTION WIDTH 14.4 % (11.7-14.4)
[2019-09-15 05:59] LABS: ANION GAP 10.3 mmol/L (8-16); CREATININE, SERUM 1.09 mg/dL (0.57-1.11); MAGNESIUM 1.9 MG/DL (1.3-2.1); POTASSIUM 4.3 mmol/L (3.5-5.1)
[2019-09-15] MEDS: INSULIN LISPRO 100 UNIT/1 ML 3ML VIAL SQ SCH ×4 (07:30→20:48)
--- NOTE | 2019-09-15 08:16 | NUR ---
PRIMARY CARE PHYSICIAN: Dr. Shaikh CHIEF COMPLAINT: right leg pain/redness. HISTORY OF PRESENT ILLNESS: This is a 79-year-old woman with a history of diabetes mellitus type 2 who developed redness/pain of right foreleg; Found to have cellulitis. PAST MEDICAL HISTORY 1. Hypertension. 2. Urinary incontinence. 3. Diabetes mellitus, type 2. Hemoglobin A1c 6.6, LDL 55. 4. Acute kidney injury in the setting of chronic kidney disease, stage unknown. 5. Severe sepsis with renal dysfunction. 6. Peripheral edema. 7. Left lung pneumonia with left pleural effusion in January 2018. 8. Dysuria. 9. Obesity. BMI 31.8. 10. Maculopapular, erythematous skin rash secondary to vancomycin. 11. Enterococcal urinary tract infection. 12. Acute metabolic encephalopathy. 13. Visual hallucinations. 14.Cellulitis bilateral legs. PAST SURGICAL HISTORY 1. Hernia repair. 2. Right foot surgery. 3. Cholecystectomy. ALLERGIES: PER ELECTRONIC MEDICAL RECORD. FAMILY/SOCIAL HISTORY: The patient is . She has 5 children. No alcohol, illicits or cigarettes. MEDICATIONS: Per electronic medical record. REVIEW OF SYSTEMS: Unreliable. VITAL SIGNS: Reviewed. PE tired appearing anicteric ns1s2 mod bs soft nt nd RIGHT FORELEG LOWER REGION WITH SCAR AND ERYTHEMA/WARMTH/TENDERNESS/MINIMAL EDEMA skin dry n. affect labs/meds revd ASSESSMENT: A 79-year-old woman. Cellulitis of right leg ADELA Obesity BMI 32.6 DM2 PLAN IV abx hba1c/lipids; ADA diet Prop: lovenox dispo: f/u clinically; f/u labs Dave Rooney MD, PhD.
[2019-09-15 08:20] LABS: PLATELET ESTIMATE MODERATELY DECREASED
[2019-09-15 08:21] LABS: PLATELET MORPHOLOGY COMMENT FEW LARGE; RBC MORPHOLOGY COMMENT NORMAL
[2019-09-15] MEDS ORDERED: ONDANSETRON HCL 4 MG ORAL DISINTEGRATING TAB PO PRN ×2 (08:30→13:15)
[2019-09-15] MEDS ORDERED: TRAMADOL HCL 50 MG TAB PO PRN (08:30)
[2019-09-15] MEDS: GABAPENTIN 100 MG CAP PO SCH ×2 (08:40→17:25)
[2019-09-15] MEDS: LACTOBACILLUS ACIDOPHILUS CAPSULE PO SCH ×2 (08:40→17:25)
[2019-09-15] MEDS: HEPARIN SOD (PORCINE) 5,000 UNIT/ML VIAL SC SCH ×2 (08:40→20:47)
[2019-09-15] MEDS: SERTRALINE HCL 50 MG TAB PO SCH (09:30)
--- NOTE | 2019-09-15 10:12 | NUR ---
WOUND CARE CONSULT 79 YO FEMALE HX CELLULITIS AND VENOUS STASIS NATHALY 20 ON CONSERVATIVE PUP AND VISCO MATTRESS LABS : WBC- 6.14 ,HGB- 12.1,GLUCOSE- 152 CT OF LOWER EXTREMITY AND VENOUS STUDY RESULTS PENDING SKIN ASSESSMENT COMPLETE PATIENT PRESENTS WITH SLOUGH COVERED UPGRADEABLE ULCERATION 1CMX1.5CM RECOMMENDATIONS : NURSING TO CONTINUE TO PROTECT AND OFFLOAD PATIENT PRESSURE POINTS NURSING TO CONTINUE TO MAINTAIN CONSERVATIVE PUP INTERVENTIONS NURSING TO APPLY SANTYL TO RIGHT LOWER LEG ULCERATION DAILY COVER WITH 4X4S WRAP WITH KERLIX AND SECURE WITH TAPE NURSING TO RECONSULT WOUND CARE WITH ANY FUTURE SKIN OR WOUND CARE RELATED NEEDS Addendum: 09/15/19 at 1022 by Lupillo Casper RN Amended: Links added.
[2019-09-15] MEDS: SEVELAMER CARBONATE 800 MG TAB PO SCH ×2 (12:00→17:25)
[2019-09-15] MEDS: SODIUM CHLORIDE 0.9% 1000ML 1,000 ML IV SCH (13:33)
[2019-09-15] MEDS ORDERED: ATORVASTATIN 10 MG TAB PO SCH (21:00)
[2019-09-16 00:09] VITALS: BP 143/70
[2019-09-16] MEDS: METRONIDAZOLE 500MG/NS 100ML 100 ML IV SCH (04:24)
[2019-09-16] MEDS: CLINDAMYCIN 600MG / 50ML 50 ML IV SCH (04:24)
[2019-09-16 04:50] VITALS: BP 121/75
[2019-09-16 05:07] VITALS: BP 121/75
[2019-09-16 05:18] LABS: BASOPHILS % 0.2 % (0.0-1.0); EOSINOPHILS # (AUTO) 0.1 (0.0-0.4); HEMATOCRIT 38.1 % (34.2-44.1); HEMOGLOBIN 12.4 g/dL (12.0-16.0); LYMPHOCYTES # (AUTO) 1.5 (1.0-3.2); LYMPHOCYTES % 30.5 % (18.0-39.1); MEAN CORPUSCULAR HEMOGLOBIN 29.1 pg (28-32); MEAN CORPUSCULAR HGB CONC 32.5 g/dL (31-35); MEAN CORPUSCULAR VOLUME 89.4 fL (81-99); MONOCYTES # (AUTO) 0.4 (0.2-0.8); MONOCYTES % 7.7 % (4.4-11.3); NEUTROPHILS # (AUTO) 2.9 (2.1-6.9); NEUTROPHILS % 58.2 % (38.7-80.0); PLATELET COUNT 143 x10e3/uL (140-360); RED BLOOD COUNT 4.26 x10e6/uL (3.6-5.1); RED CELL DISTRIBUTION WIDTH 14.2 % (11.7-14.4)
[2019-09-16 05:33] LABS: ANION GAP 12.3 mmol/L (8-16); CALCIUM 8.5 mg/dL (8.4-10.2); CREATININE, SERUM 0.98 mg/dL (0.57-1.11); POTASSIUM 4.3 mmol/L (3.5-5.1)
[2019-09-16] MEDS: INSULIN LISPRO 100 UNIT/1 ML 3ML VIAL SQ SCH ×2 (07:30→11:30)
[2019-09-16 07:59] VITALS: BP 137/63
[2019-09-16] MEDS ORDERED: COLLAGENASE 5 GM TUBE TOP SCH (09:00)
[2019-09-16] MEDS: HEPARIN SOD (PORCINE) 5,000 UNIT/ML VIAL SC SCH (09:00)
[2019-09-16] MEDS ORDERED: CLINDAMYCIN HC300 MG PO (09:36)
--- NOTE | 2019-09-16 09:40 | NUR ---
D/C summary Principal Dx: Cellulitis of right leg ADELA Obesity BMI 32.6 DM2 PLAN IV abx hba1c/lipids; ADA diet Prop: lovenox dispo: f/u clinically; f/u labs Hba1c/LDL 7.7/106; cont clindamycin; d/c home f/u pcp 5 days and podiatry 5 days stable d/c>35mins Dave Rooney MD, PhD.
[2019-09-16] MEDS: SODIUM CHLORIDE 0.9% 1000ML 1,000 ML IV SCH (09:47)
[2019-09-16] MEDS: LACTOBACILLUS ACIDOPHILUS CAPSULE PO SCH (09:47)
[2019-09-16] MEDS: SERTRALINE HCL 50 MG TAB PO SCH (09:47)
[2019-09-16] MEDS: GABAPENTIN 100 MG CAP PO SCH (09:47)
[2019-09-16] MEDS: SEVELAMER CARBONATE 800 MG TAB PO SCH (09:47)
== END 2019-09-16 13:40 | disposition home or self-care (01) ==
LOC: ER 12:35 → ERHOLD 18:29 → IMCU 20:46
PROVIDERS: ADMIT Internal Medicine; ATTEND Internal Medicine
DX: L03.115 Cellulitis of right lower limb (principal); I12.9 Hypertensive chronic kidney disease with stage 1 through stage 4 chronic kidney disease, or unspecified chronic kidney disease; E11.22 Type 2 diabetes mellitus with diabetic chronic kidney disease; N18.3 Chronic kidney disease, stage 3 (moderate); Z79.4 Long term (current) use of insulin; N17.9 Acute kidney failure, unspecified; E66.9 Obesity, unspecified; Z68.32 Body mass index [BMI] 32.0-32.9, adult
CPT/HCPCS: 36415 ×3; 73700; 80048 ×2; 80053; 80061; 82948 ×2; 83036; 83735; 85025 ×3; 87040; 93005; 93970; 99284; G0378 ×3; J1644 ×3; J7030 ×2; J7050

== ENCOUNTER 2024-11-15 21:00 | Emergency (ER) | payer MEDICARE ==
[~2024-11-15] VITALS: Ht 162.6 cm; Wt 81.6 kg
[~2024-11-15 21:00] MED LIST changes: +CLINDAMYCIN HC300 MG PO
[2024-11-15 21:07] VITALS: TEMP 98.6
[2024-11-15 21:52] LABS: BASOPHILS % 0.7 % (0.0-1.0); EOSINOPHILS # (AUTO) 0.1 (0.0-0.4); EOSINOPHILS % 1.3 % (0.0-6.0); HEMATOCRIT 38.4 % (34.2-44.1); LYMPHOCYTES # (AUTO) 2.3 (1.0-3.2); LYMPHOCYTES % 37.9 % (18.0-39.1); MEAN CORPUSCULAR HEMOGLOBIN 29.8 pg (28-32); MEAN CORPUSCULAR HGB CONC 31.3 g/dL (31-35); MEAN CORPUSCULAR VOLUME 95.3 fL (81-99); MONOCYTES # (AUTO) 0.4 (0.2-0.8); MONOCYTES % 6.6 % (4.4-11.3); NEUTROPHILS # (AUTO) 3.2 (2.1-6.9); NEUTROPHILS % 52.8 % (38.7-80.0); PLATELET COUNT 160 x10e3/uL (140-360); RED BLOOD COUNT 4.03 x10e6/uL (3.6-5.1); RED CELL DISTRIBUTION WIDTH 14.4 % (11.7-14.4); WHITE BLOOD COUNT 6.02 x10e3/uL (4.8-10.8)
[2024-11-15 22:14] LABS: ALBUMIN 3.4 g/dL (3.5-5.0); ALBUMIN/GLOBULIN RATIO 1.3 (0.8-2.0); ANION GAP 13.1 mmol/L (8-16); BILIRUBIN,TOTAL 0.4 mg/dL (0.2-1.2); CALCIUM 9.2 mg/dL (8.4-10.2); CREATININE, SERUM 1.07 mg/dL (0.57-1.11); POTASSIUM 4.1 mmol/L (3.5-5.1); TOTAL PROTEIN 6.1 g/dL (6.5-8.1)
[2024-11-15 22:23] LABS: TROPONIN I 0.01 ng/mL (0-0.300)
[2024-11-15 23:52] VITALS: PULSE 66; RESP 18; O2SAT 100
== END 2024-11-15 23:53 | disposition home or self-care (01) ==
LOC: ER 21:15
DX: R07.89 Other chest pain (principal); R03.0 Elevated blood-pressure reading, without diagnosis of hypertension; I12.9 Hypertensive chronic kidney disease with stage 1 through stage 4 chronic kidney disease, or unspecified chronic kidney disease; E11.22 Type 2 diabetes mellitus with diabetic chronic kidney disease; E11.65 Type 2 diabetes mellitus with hyperglycemia; N18.9 Chronic kidney disease, unspecified; R94.31 Abnormal electrocardiogram [ECG] [EKG]
CPT/HCPCS: 36415; 70450; 71045; 80053; 82550; 83690; 83880; 84484; 85025; 93005; 99284

== ENCOUNTER 2024-12-20 08:49 | Emergency (ER) | payer MEDICARE ==
[~2024-12-20] VITALS: Ht 167.6 cm; Wt 81.6 kg
[2024-12-20 09:15] VITALS: PULSE 99; TEMP 98.5
[2024-12-20] MEDS: ONDANSETRON HCL INJ 2MG/ML 2ML 2 MG/ML VIAL IV STA (10:19)
[2024-12-20] MEDS: SODIUM CHLORIDE 0.9% 1000ML 1,000 ML IV ONE (10:19)
[2024-12-20] MEDS: Morphine 4mg INJECTION 4 MG/ML INJ IV ONE (10:20)
[2024-12-20 10:55] LABS: BASOPHILS % 0.1 % (0.0-1.0); HEMATOCRIT 41.9 % (34.2-44.1); HEMOGLOBIN 13.8 g/dL (12.0-16.0); LYMPHOCYTES # (AUTO) 0.4 (1.0-3.2); LYMPHOCYTES % 6.1 % (18.0-39.1); MEAN CORPUSCULAR HEMOGLOBIN 29.8 pg (28-32); MEAN CORPUSCULAR HGB CONC 32.9 g/dL (31-35); MEAN CORPUSCULAR VOLUME 90.5 fL (81-99); MONOCYTES # (AUTO) 0.3 (0.2-0.8); MONOCYTES % 3.9 % (4.4-11.3); PLATELET COUNT 167 x10e3/uL (140-360); RED BLOOD COUNT 4.63 x10e6/uL (3.6-5.1); RED CELL DISTRIBUTION WIDTH 14.2 % (11.7-14.4); WHITE BLOOD COUNT 6.71 x10e3/uL (4.8-10.8)
[2024-12-20 11:11] LABS: ALBUMIN 3.6 g/dL (3.5-5.0); ALBUMIN/GLOBULIN RATIO 1.1 (0.8-2.0); ANION GAP 13.9 mmol/L (8-16); BILIRUBIN,TOTAL 0.7 mg/dL (0.2-1.2); CALCIUM 8.1 mg/dL (8.4-10.2); CREATININE, SERUM 1.28 mg/dL (0.57-1.11); POTASSIUM 3.9 mmol/L (3.5-5.1); TOTAL PROTEIN 6.8 g/dL (6.5-8.1)
[2024-12-20 11:19] LABS: BILIRUBIN,URINE NEGATIVE (NEGATIVE); CLARITY,URINE SL CLOUDY (CLEAR); COLOR,URINE YELLOW (YELLOW); GLUCOSE, URINE 2+ (NEGATIVE); KETONES,URINE TRACE (NEGATIVE); LEUKOCYTE ESTERASE ,URINE NEGATIVE (NEGATIVE); NITRITE,URINE NEGATIVE (NEGATIVE); PH,URINE 5.5 (5 - 7); PROTEIN,URINE DIPSTICK NEGATIVE (NEGATIVE); URINE UROBILINOGEN 0.2 mg/dL (0.2 - 1)
[2024-12-20] MEDS ORDERED: IOPAMIDOL 370 MG/ML 100 ML INFUS..BTL INJ ONE (11:25)
[2024-12-20 11:32] LABS: BACTERIA,URINE MODERATE /HPF; EPITHELIAL CELLS,URINE MODERATE /LPF
[2024-12-20 11:33] LABS: RBC,URINE 0-5 /HPF (0-5)
[2024-12-20 11:34] LABS: URIC ACID CRYSTALS,URINE FEW
[2024-12-20] MEDS: DICYCLOMINE HCL 20 MG/2 ML VIAL IM ONE (13:05)
[2024-12-20] MEDS ORDERED: CEPHALEXIN500 MG PO (14:05)
[2024-12-20] MEDS ORDERED: ONDANSETRON ODT4 MG PO (14:05)
[2024-12-20 15:12] VITALS: BP 125/57; PULSE 97; RESP 18; TEMP 97.9; O2SAT 97
== END 2024-12-20 15:17 | disposition home or self-care (01) ==
LOC: ER 09:28
DX: R10.13 Epigastric pain (principal); N39.0 Urinary tract infection, site not specified; R11.0 Nausea; K57.90 Diverticulosis of intestine, part unspecified, without perforation or abscess without bleeding; K44.9 Diaphragmatic hernia without obstruction or gangrene; R94.31 Abnormal electrocardiogram [ECG] [EKG]
CPT/HCPCS: 36415; 74177; 80053; 81001; 83690; 85025; 87086; 87186; 93005; 99284; J0500; J0696; J2270; J2405; J7030; Q9967